=== PATIENT | female | born 1955 | race Caucasian/White ===

== ENCOUNTER 2022-12-09 03:04 | Emergency (ER) | payer MEDICARE ==
[~2022-12-09] VITALS: Ht 167.6 cm; Wt 157.4 kg
--- NOTE | 2022-12-09 03:04 | NUR ---
Patient triaged and placed in ED RM 6. Placed on monitor. MD Pugh notified of need for MSE. Report given to JUAN MANUEL Alcantar.
--- NOTE | 2022-12-09 03:05 | NUR ---
MD GOOD AT BEDSIDE FOR MSE.
[2022-12-09] MEDS ORDERED: IPRATROPIUM/ALBUTEROL SULFATE 3 ML AMPUL.NEB (DUONEB) ONE (03:07)
[2022-12-09 03:08] VITALS: BP_SYST 121
[2022-12-09] MEDS ORDERED: IPRATROPIUM/ALBUTEROL SULFATE 3 ML AMPUL.NEB (DUONEB) INH ONE (03:15)
[2022-12-09 03:55] LABS: BASOPHILS % (AUTO) 0.6 % (0.0-2.0); EOSINOPHILS % (AUTO) 0.5 % (0.0-4.0); HEMATOCRIT 40.7 % (36-48); HEMOGLOBIN 12.6 g/dL (12.0-16.0); LYMPHOCYTES # (AUTO) 1.9 K/uL (1.0-5.5); MEAN CORPUSCULAR HEMOGLOBIN 28 pg (27-31); MEAN CORPUSCULAR HGB CONC 31 % (32-36); MEAN CORPUSCULAR VOLUME 92 fL (79.0-98.0); MONOCYTES # (AUTO) 0.6 K/uL (0.0-1.0); MONOCYTES % (AUTO) 12.9 % (1.7-9.3); NEUTROPHILS # (AUTO) 2.2 K/uL (1.8-7.7); PLATELET COUNT (AUTO) 128 K/uL (130-430); RED BLOOD CELL COUNT(AUTO) 4.44 MIL/uL (4.2-6.2); RED CELL DISTRIBUTION WIDTH 17.9 % (9.0-15.0); WHITE BLOOD COUNT (AUTO) 4.8 K/uL (4.8-10.8)
--- NOTE | 2022-12-09 04:13 | NUR ---
COVID AND FLU OBTAINED AND SENT TO LAB LABELED
[2022-12-09] MEDS ORDERED: FUROSEMIDE 40 MG/4 ML VIAL IVP ONE (04:15)
[2022-12-09 04:17] LABS: ANION GAP 3 (5-15); CALCIUM 9.8 mg/dL (8.4-11.0); CHLORIDE 105 mmol/L (98-107); CREATININE 1.54 mg/dL (0.55-1.30); GLUCOSE 333 mg/dL (70-99); UREA NITROGEN, BLOOD 45 mg/dL (8-21)
[2022-12-09 04:21] LABS: GFR AFRICAN AMERICAN 43 mL/min (>90)
[2022-12-09 04:25] LABS: ALANINE AMINOTRANSFERASE 22 U/L (12-78); ASPARTATE AMINOTRANSFERASE 26 U/L (10-37); LIPASE 66 U/L (73-393); TOTAL BILIRUBIN 0.5 mg/dL (0.0-1.0)
[2022-12-09] MEDS ORDERED: ASPIRIN 325 MG TABLET PO ONE (04:45)
[2022-12-09] MEDS ORDERED: NITROGLYCERIN 0.4 MG TAB.SUBL SL ONE (04:45)
[2022-12-09 06:00] VITALS: BP_SYST 110
--- NOTE | 2022-12-09 07:13 | NUR ---
SBAR TO LORNE ZAMBRANO. PT RESTING IN BED. VSS. NAD NOTED. TO BE TRANSFERRED TO [facility] ETA [id number].
== END 2022-12-09 08:55 | disposition short-term general hospital (02) ==
LOC: SED 03:04
DX: J45.901 Unspecified asthma with (acute) exacerbation (principal); I11.0 Hypertensive heart disease with heart failure; I50.9 Heart failure, unspecified; E11.65 Type 2 diabetes mellitus with hyperglycemia; R73.9 Hyperglycemia, unspecified; I21.4 Non-ST elevation (NSTEMI) myocardial infarction; D69.6 Thrombocytopenia, unspecified; N17.9 Acute kidney failure, unspecified; Z79.899 Other long term (current) drug therapy; Z20.822 Contact with and (suspected) exposure to COVID-19
CPT/HCPCS: 99285; 96374; 71045; 87426; 80053; 83880; 83690; 85025; 87040; 84484; 36415; 93005; 94640; 83605; 87804 ×2; J1940